=== PATIENT | female | born 1960 | race Caucasian/White ===

== ENCOUNTER → 2017-03-29 | Day surgery (SDC) | payer OTHER ==
[~2017-03-29] MED LIST: ACETAMINOPHEN 1000 MG/100 ML VIAL IV ONE; BACITRACIN IM FOR SOLN 50,000 UNIT VIAL ONE; BUPIVACAINE/EPINEPHRINE 0.25% 50 ML VIAL ONE; GENTAMICIN SULFATE 80 MG/2 ML VIAL ONE; KETOROLAC TROMETHAMINE 30 MG/ML (IVP) VIAL IV PUSH ONE; LACTATED RINGER'S 1000 ML INJ 1,000 ML ONE; LIDOCAINE 1%/EPINEPHrine 1:100,000 SOLN 20 ML VIAL ONE; MIDAZOLAM HCL 2 MG/2 ML VIAL ONE; MORPHINE SULFATE 4 MG/ML INJ ONE; NEOMYCIN/POLYMYXIN/BACITRACIN OINT 15 GM TUBE ONE; ONDANSETRON HCL 4 MG/2 ML VIAL IV PUSH ONE; PROPOFOL 200 MG/20 ML AMP IV ONE; SODIUM CHLORIDE 0.9% 20 ML VIAL ONE; ceFAZolin 2 GM PREMIX 50 ML ONE; ceFAZolin INJ 1,000 MG VIAL ONE
--- NOTE | 2017-03-29 08:22 | TN ---
cc: JEFFREY ELISE M.D. DATE OF SURGERY 03/29/2017 PREOPERATIVE DIAGNOSIS Deflation saline implants. Status post augmentation mammoplasty. PROCEDURE Removal of breast implants and replacement with James Hirsch SRM-405. serial number of the right breast implant device is [id number] and to the left [id number]. Both 405 cc. SURGEON Jeffrey Elise MD FACS ANESTHESIA LMA general plus a total of 35 cc of 1% lidocaine and epinephrine mixed with 0.25% Marcaine at 2:1 ratio. COMPLICATIONS None. PROCEDURE She was properly consented, marked, properly anesthetized. The skin was sterilized with Betadine solution and sterile draping applied. Isolation of the nipple-areolar complex was done with Tegaderm. Through an inframammary incision, the retroperitoneal plane was encountered and the implant was removed, irrigation with antibiotic solution carried out. Lateral inferior capsulorrhaphies were done with multiple [id number] fashion layers of 0-silk and with isolation of the skin the new implant was introduced. The contralateral side was approached in exactly the same manner. At this point I proceeded and sat the patient up. Finding good symmetry, I proceeded to close the wounds in multiple 2-0 Monocryl suture layers in the following areas: The capsule, Ju fascia, the dermis and subcu. After Mastisol, Steri-Strips were applied. The patient continues under general anesthesia for umbilical herniorrhaphy, to be performed by Dr. Arley Fuentes and that dictation will be obviously dictated by him. As far as our procedure went, it went very well and the patient tolerated at the procedure well. Jeffrey Elise MD [facility]/SSB /8:09 AM /8:18 AM CHELE
--- NOTE | 2017-03-29 10:48 | TN ---
cc: YAMEL MAX M.D. DATE OF SURGERY: 03/29/2017 PREOPERATIVE DIAGNOSIS Umbilical incisional hernia. POSTOPERATIVE DIAGNOSIS Umbilical incisional hernia. PROCEDURE PERFORMED Primary umbilical incisional hernia repair. SURGEON Yamel Max ANESTHESIA General LMA. COMPLICATIONS None. INDICATION FOR PROCEDURE Ms. Sherman is a pleasant 56-year-old female who was noted to have a periumbilical hernia. She had a tubal ligation many years ago. She had an umbilical hernia with chronically incarcerated fat. She was seen and evaluated in the office and offered elective excision and repair. Risks and benefits of repair was discussed with her and she was agreeable. DETAILS OF PROCEDURE The patient was identified, brought to the operating room and placed supine on the operating room table. After adequate general anesthesia was achieved the anterior abdomen was prepped and draped in standard surgical fashion. The infraumbilical space was anesthetized with 0.25% Marcaine. An infraumbilical incision was made. Dissection was carried down to subcutaneous tissue. On the left lateral side of the patient's umbilicus there was noted to be a hernia sac with fat. This was dissected free. The patient had a large amount of fat protruding through a very small fascial defect. The abdominal fat was then transected at the level of the fascia using electrocautery Bovie. The abdominal fat was then discarded. The fascial defect was identified. It was quite small. We were able to close it with a single 0 Prolene suture. Once we did this the defect was completely closed. The wound was copiously irrigated with normal saline solution. The wound was injected with additional local anesthetic. The wound was then closed in two layers using 3-0 and 4-0 Vicryl. Sterile dressings were applied and the patient was awakened and brought to Recovery in stable condition. MD NAPOLEON Pacheco/SITA /10:09 AM /10:46 AM
== END | disposition home or self-care (01) ==
LOC: ESDC 06:06
PROVIDERS: ATTEND Plastic Surgery
DX: Z41.1 Encounter for cosmetic surgery (principal); K42.0 Umbilical hernia with obstruction, without gangrene
CPT/HCPCS: 00402; 00750; 19325; 19328; 49587; C1789; J0131; J0690; J1580; J1885; J2250; J2270; J2405; J3010; J7120

== ENCOUNTER → 2017-12-02 | Day surgery (SDC) | payer OTHER ==
--- NOTE | 2017-12-01 16:45 | TH ---
cc: AROLDO BRITTON M.D. DATE 12/02/2017 DATE OF 1960 PROCEDURE TO BE PERFORMED Revision right breast implant. HISTORY OF PRESENT ILLNESS This is a 57-year-old female who underwent an augmentation mammoplasty on March 29, 2017 sustaining a ____ healing of the right breast. Implant for which we are doing a revision and we are going to do an interposition Strattice as well. PAST MEDICAL HISTORY Tubal ligation. ALLERGIES None. SOCIAL HISTORY Social smoker. was unremarkable. PHYSICAL EXAMINATION CONSTITUTIONAL: General appearance. The patient is a well-developed female in no acute distress. Body habitus is within normal limits. There appear to be no deformities. Appears to have attention to grooming. HEENT: Eyes Conjunctivae and lids are within normal anatomical limits. The pupils are reactive to light and accommodation, size, and symmetry. There is no evidence of exudate, hemorrhage, or vessel change. Ears, mouth, nose, and throat The external inspection of the ears and nose fails to demonstrate any pathology, scars, lesions, or masses. Nasal mucosa, septum, and turbinates appear to be well hydrated as well as the lips and gums. No evidence of masses in the hypopharynx or submental area. RESPIRATORY: The patient shows no evidence of intercostal refractions. Otherwise, lungs are clear to auscultation without any abnormal sounds or rubs. CARDIOVASCULAR: The patient has a normal heart rate and rhythm. There is no evidence of noticed carotid bruits. Femoral pulses and pedal pulses in extremities are also within normal limits. GASTROINTESTINAL/ABDOMEN: Soft with no evidence of masses or tenderness. Unable to palpate the liver or spleen. No evidence of hernia. MUSCULOSKELETAL: Appears to be reasonable range of motion on the head, neck, spine, ribs, pelvis, right upper extremity, left upper extremity, right lower extremity, and left lower extremity. The muscle strength and tone appears to be equal and within accepted limits. SKIN: There is no rashes, lesions, or ulcers on the trunk, back, and extremities. NEUROLOGICAL: Examination is grossly normal. PSYCHIATRIC: The patient appears to have good orientation of time, place, and person. Does not appear to have any mood effects of depression, anxiety, or agitation. PLAN As above. MD JONATHAN Herman /3:47 PM /4:12 PM
[~2017-12-02] MED LIST changes: +ACETAMINOPHEN 1000 MG/100 ML 100 ML IV ONE; -ACETAMINOPHEN 1000 MG/100 ML VIAL IV ONE; -LACTATED RINGER'S 1000 ML INJ 1,000 ML ONE; -LIDOCAINE 1%/EPINEPHrine 1:100,000 SOLN 20 ML VIAL ONE; +LIDOCAINE 1%/EPINEPHrine 1:100,000 SOLN 50 ML VIAL ONE; +MORPHINE SULFATE 2 MG/ML INJ ONE; -MORPHINE SULFATE 4 MG/ML INJ ONE; -NEOMYCIN/POLYMYXIN/BACITRACIN OINT 15 GM TUBE ONE; -ceFAZolin 2 GM PREMIX 50 ML ONE
--- NOTE | 2017-12-02 08:13 | TN ---
cc: AROLDO BRITTON M.D. DATE OF SURGERY 12/02/2017 PREOPERATIVE DIAGNOSIS Status post augmentation mammoplasty with resultant missed healing of the right upper breast. POSTOPERATIVE DIAGNOSIS Status post augmentation mammoplasty with resultant missed healing of the right upper breast. PROCEDURE Revision augmentation mastopexy and re-augmentation with SRM-445, serial number [id number]. This was exchanged for a slightly bigger volume from the previous implant which was a 405 cc gel. PROCEDURE IN DETAIL She was properly consented, marked, anesthetized, the skin sterilized with Betadine solution and sterile draping applied. Isolation of the nipple-areolar complex was performed. Utilizing the same inframammary incision, we encountered the capsule where this was properly released and some of the edges were turned into the defect. With this the capsulotomy was done inferiorly and laterally. Thus I proceeded to perform the isolation of the skin and placed a sizer. That indeed showed that the patient could tolerate the next size up and from there we introduced using the no-touch technique the 445 SRM breast implant. The patient was sat up, blunt touches done to achieve best symmetry possible. Proceeded and closed the wounds in multiple 2-0 Monocryl sutures on the capsule, dermis and subcu. The patient tolerated the procedure well. MD MARIAH Herman/MELI /7:44 AM /7:56 AM
== END | disposition home or self-care (01) ==
LOC: ESDC 06:26
PROVIDERS: ATTEND Plastic Surgery
DX: Z41.1 Encounter for cosmetic surgery (principal)
CPT/HCPCS: 00402; 19325; C1789; J0131; J0690; J1580; J1885; J2250; J2270; J2405; J3010